=== PATIENT | female | born 1980 | race Caucasian/White ===

== ENCOUNTER 2017-07-02 12:42 | Outpatient (CLI) | payer OTHER | END 2017-07-02 22:00 | disposition home or self-care (01) | LOC: MLB 12:42 | PROVIDERS: ATTEND Family Medicine Geriatric Medicine | DX: D68.61 Antiphospholipid syndrome (principal) | CPT/HCPCS: 36415; 85610 ==

== ENCOUNTER 2017-07-10 11:49 | Outpatient (CLI) | payer OTHER ==
[2017-07-10 12:41] LABS: PROTHROMBIN TIME 33.8 secs (10.8-13.4)
== END 2017-07-10 22:17 | disposition home or self-care (01) ==
LOC: MLB 11:49
PROVIDERS: ATTEND Family Medicine Geriatric Medicine
DX: D68.61 Antiphospholipid syndrome (principal)
CPT/HCPCS: 36415; 85610

== ENCOUNTER 2017-07-24 11:50 | Outpatient (CLI) | payer OTHER ==
[2017-07-24 12:41] LABS: PROTHROMBIN TIME 33.7 secs (10.8-13.4)
== END 2017-07-24 19:46 | disposition home or self-care (01) ==
LOC: MLB 11:50
PROVIDERS: ATTEND Family Medicine Geriatric Medicine
DX: D68.61 Antiphospholipid syndrome (principal)
CPT/HCPCS: 36415; 85610

== ENCOUNTER 2017-08-07 12:06 | Outpatient (CLI) | payer OTHER ==
[2017-08-07 14:03] LABS: PROTHROMBIN TIME 15.7 secs (10.8-13.4)
== END 2017-08-07 20:39 | disposition home or self-care (01) ==
LOC: MLB 12:06
PROVIDERS: ATTEND Family Medicine Geriatric Medicine
DX: D68.61 Antiphospholipid syndrome (principal)
CPT/HCPCS: 36415; 85610

== ENCOUNTER 2017-09-04 11:30 | Outpatient (CLI) | payer OTHER ==
[2017-09-04 12:43] LABS: PROTHROMBIN TIME 22.4 secs (10.8-13.4)
== END 2017-09-04 20:15 | disposition home or self-care (01) ==
LOC: MLB 11:30
PROVIDERS: ATTEND Family Medicine Geriatric Medicine
DX: D68.61 Antiphospholipid syndrome (principal)
CPT/HCPCS: 36415; 85610

== ENCOUNTER 2017-10-09 12:05 | Outpatient (CLI) | payer OTHER ==
[2017-10-09 13:28] LABS: BASOPHILS # (AUTO) 0.1 K/uL (0.00-0.22); BASOPHILS % (AUTO) 1.2 % (0.0-2.0); EOSINOPHILS # (AUTO) 0.2 K/uL (0-0.4); EOSINOPHILS % (AUTO) 2.2 % (0.0-4.0); HEMATOCRIT 45.3 % (36-48); HEMOGLOBIN 15.4 g/dL (12.0-16.0); LYMPHOCYTES # (AUTO) 2.1 K/uL (2.5-16.5); LYMPHOCYTES % (AUTO) 20.5 % (20.5-51.1); MEAN CORPUSCULAR HEMOGLOBIN 30 pg (27-31); MEAN CORPUSCULAR HGB CONC 34 g/dL (33-37); MONOCYTES # (AUTO) 0.4 K/uL (0.8-1.0); MONOCYTES % (AUTO) 4.1 % (1.7-9.3); NEUTROPHILS # (AUTO) 7.5 K/uL (1.8-7.7); PLATELET COUNT (AUTO) 166 K/uL (140-450); RED BLOOD CELL COUNT(AUTO) 5.09 MIL/uL (4.20-5.40); RED CELL DISTRIBUTION WIDTH 13.5 % (11.6-13.7); WHITE BLOOD COUNT (AUTO) 10.5 K/uL (4.8-10.8)
[2017-10-09 13:43] LABS: PROTHROMBIN TIME 21.8 secs (10.8-13.4)
[2017-10-09 13:57] LABS: ALBUMIN 3.8 g/dL (3.4-5.0); ANION GAP 14.9 (8-16); CARBON DIOXIDE 26.3 mmol/L (21-32); CHOL/HDL RATIO 3.9 (1-4.5); CREATININE 0.8 mg/dL (0.6-1.3); MAGNESIUM 1.7 mg/dL (1.8-2.4); POTASSIUM 4.2 mmol/L (3.5-5.1); THYROID STIMULATING HORMONE 0.84 uIU/mL (0.34-3.74); TOTAL BILIRUBIN 0.4 mg/dL (0.0-1.0)
[2017-10-10 09:36] LABS: T4 (THYROXINE) 8.1 ug/dL (4.5-12.0)
== END 2017-10-09 19:32 | disposition home or self-care (01) ==
LOC: MLB 12:05
PROVIDERS: ATTEND Family Medicine Geriatric Medicine
DX: D68.61 Antiphospholipid syndrome (principal); I10 Essential (primary) hypertension; E78.5 Hyperlipidemia, unspecified; D64.9 Anemia, unspecified
CPT/HCPCS: 36415; 80053; 83735; 84436; 84443; 85025; 85610; 85613; 86147

== ENCOUNTER 2018-02-11 11:42 | Outpatient (CLI) | payer OTHER ==
[2018-02-11 12:42] LABS: PROTHROMBIN TIME 18.4 secs (10.8-13.4)
[2018-02-12 08:14] LABS: FOLLICLE STIMULATING HORMONE 6.7 mIU/mL (.); LUTEINIZING HORMONE 4.7 mIU/mL (.); PROLACTIN 7.7 ng/mL (4.8-23.3)
== END 2018-02-11 16:41 | disposition home or self-care (01) ==
LOC: MLB 11:42
PROVIDERS: ATTEND Family Medicine Geriatric Medicine
DX: N92.6 Irregular menstruation, unspecified (principal); I49.9 Cardiac arrhythmia, unspecified; Z79.01 Long term (current) use of anticoagulants
CPT/HCPCS: 36415; 83001; 83002; 83735; 84146; 85610

== ENCOUNTER 2018-03-19 11:34 | Outpatient (CLI) | payer OTHER ==
[2018-03-19 12:12] LABS: PROTHROMBIN TIME 25.3 secs (10.8-13.4)
== END 2018-03-19 21:32 | disposition home or self-care (01) ==
LOC: MLB 11:34
PROVIDERS: ATTEND Family Medicine Geriatric Medicine
DX: D68.61 Antiphospholipid syndrome (principal); Z79.01 Long term (current) use of anticoagulants
CPT/HCPCS: 36415; 85610

== ENCOUNTER 2018-05-12 10:35 | Outpatient (CLI) | payer OTHER ==
[2018-05-12 11:06] LABS: BASOPHILS # (AUTO) 0.1 K/uL (0.00-0.22); BASOPHILS % (AUTO) 0.7 % (0.0-2.0); EOSINOPHILS # (AUTO) 0.3 K/uL (0-0.4); EOSINOPHILS % (AUTO) 2.9 % (0.0-4.0); HEMATOCRIT 42.1 % (36-48); HEMOGLOBIN 14.1 g/dL (12.0-16.0); LYMPHOCYTES % (AUTO) 18.7 % (20.5-51.1); MEAN CORPUSCULAR HEMOGLOBIN 30 pg (27-31); MEAN CORPUSCULAR HGB CONC 34 g/dL (33-37); MEAN CORPUSCULAR VOLUME 90.1 fL (80-94); MONOCYTES # (AUTO) 0.5 K/uL (0.8-1.0); MONOCYTES % (AUTO) 4.7 % (1.7-9.3); NEUTROPHILS # (AUTO) 7.6 K/uL (1.8-7.7); PLATELET COUNT (AUTO) 168 K/uL (140-450); RED BLOOD CELL COUNT(AUTO) 4.67 MIL/uL (4.20-5.40); RED CELL DISTRIBUTION WIDTH 13.5 % (11.6-13.7); WHITE BLOOD COUNT (AUTO) 10.5 K/uL (4.8-10.8)
== END 2018-05-12 20:42 | disposition home or self-care (01) ==
LOC: MLB 10:35
PROVIDERS: ATTEND Family Medicine Geriatric Medicine
DX: N92.0 Excessive and frequent menstruation with regular cycle (principal); D68.61 Antiphospholipid syndrome
CPT/HCPCS: 36415; 85025; 85610

== ENCOUNTER 2018-06-25 11:31 | Outpatient (CLI) | payer OTHER ==
[2018-06-25 12:49] LABS: PROTHROMBIN TIME 25.5 secs (10.8-13.4)
== END 2018-06-25 21:34 | disposition home or self-care (01) ==
LOC: MLB 11:31
PROVIDERS: ATTEND Family Medicine Geriatric Medicine
DX: D68.61 Antiphospholipid syndrome (principal)
CPT/HCPCS: 36415; 85610

== ENCOUNTER → 2018-08-20 | Outpatient (CLI) | payer OTHER ==
[2018-08-20 12:42] LABS: PROTHROMBIN TIME 19.1 secs (10.8-13.4)
== END | disposition home or self-care (01) ==
LOC: MLB 11:06
PROVIDERS: ATTEND Family Medicine Geriatric Medicine
DX: D68.61 Antiphospholipid syndrome (principal)
CPT/HCPCS: 36415; 85610

== ENCOUNTER 2019-02-07 11:38 | Outpatient (CLI) | payer OTHER ==
[2019-02-07 13:08] LABS: PROTHROMBIN TIME 30.1 secs (10.8-13.4)
== END 2019-02-07 20:40 | disposition home or self-care (01) ==
LOC: MLB 11:38
DX: I48.92 Unspecified atrial flutter (principal); Z79.02 Long term (current) use of antithrombotics/antiplatelets
CPT/HCPCS: 36415; 85610

== ENCOUNTER 2019-03-27 11:29 | Outpatient (CLI) | payer OTHER ==
[2019-03-27 12:19] LABS: PROTHROMBIN TIME 22.6 secs (10.8-13.4)
== END 2019-03-27 20:21 | disposition home or self-care (01) ==
LOC: MLB 11:29
DX: I48.92 Unspecified atrial flutter (principal); Z79.02 Long term (current) use of antithrombotics/antiplatelets
CPT/HCPCS: 36415; 85610

== ENCOUNTER 2019-04-24 10:23 | Outpatient (CLI) | payer OTHER ==
[2019-04-24 10:54] LABS: BASOPHILS # (AUTO) 0.1 K/uL (0.00-0.22); EOSINOPHILS # (AUTO) 0.2 K/uL (0-0.4); EOSINOPHILS % (AUTO) 2.2 % (0.0-4.0); HEMATOCRIT 40.5 % (36-48); HEMOGLOBIN 14.1 g/dL (12.0-16.0); LYMPHOCYTES # (AUTO) 2.1 K/uL (2.5-16.5); LYMPHOCYTES % (AUTO) 23.6 % (20.5-51.1); MEAN CORPUSCULAR HEMOGLOBIN 31 pg (27-31); MEAN CORPUSCULAR HGB CONC 35 g/dL (33-37); MEAN CORPUSCULAR VOLUME 90.3 fL (80-94); MONOCYTES # (AUTO) 0.4 K/uL (0.8-1.0); MONOCYTES % (AUTO) 4.4 % (1.7-9.3); NEUTROPHILS # (AUTO) 6.2 K/uL (1.8-7.7); NEUTROPHILS % (AUTO) 68.8 % (42.2-75.2); PLATELET COUNT (AUTO) 173 K/uL (140-450); RED BLOOD CELL COUNT(AUTO) 4.49 MIL/uL (4.20-5.40); RED CELL DISTRIBUTION WIDTH 14.1 % (11.6-13.7)
[2019-04-24 11:12] LABS: APPEARANCE,URINE CLEAR (CLEAR); BILIRUBIN,URINE NEGATIVE (NEGATIVE); BLOOD, URINE 3+ (NEGATIVE); COLOR,URINE YELLOW (YELLOW); LEUKOCYTE ESTERASE ,URINE NEGATIVE (NEGATIVE); NITRITE, URINE NEGATIVE (NEGATIVE); UGLUCOSE NEGATIVE (NEGATIVE)
[2019-04-24 11:26] LABS: PROTHROMBIN TIME 26.3 secs (10.8-13.4)
[2019-04-24 11:33] LABS: ANION GAP 12.9 (8-16); CREATININE 0.8 mg/dL (0.6-1.3); POTASSIUM 3.9 mmol/L (3.5-5.1)
[2019-04-24 11:34] LABS: ALBUMIN 3.3 g/dL (3.4-5.0); TOTAL BILIRUBIN 0.4 mg/dL (0.0-1.0)
[2019-04-24 11:42] LABS: WBC,URINE 0-5 /HPF (0-5)
[2019-04-24 16:00] LABS: CHOL/HDL RATIO 4.5 (1-4.5)
== END 2019-04-24 16:09 | disposition home or self-care (01) ==
LOC: MLB 10:23
DX: Z13.21 Encounter for screening for nutritional disorder (principal); Z13.1 Encounter for screening for diabetes mellitus; Z13.0 Encounter for screening for diseases of the blood and blood-forming organs and certain disorders involving the immune mechanism; I48.92 Unspecified atrial flutter; I10 Essential (primary) hypertension; Z13.220 Encounter for screening for lipoid disorders; Z79.02 Long term (current) use of antithrombotics/antiplatelets
CPT/HCPCS: 36415; 80053; 81001; 82306; 83036; 85025; 85610

== ENCOUNTER 2019-09-28 16:39 | Outpatient (CLI) | payer OTHER | END 2019-09-28 20:22 | disposition home or self-care (01) | LOC: MLB 16:39 | DX: D68.61 Antiphospholipid syndrome (principal); Z79.01 Long term (current) use of anticoagulants | CPT/HCPCS: 36415; 85610 ==

== ENCOUNTER 2019-10-17 11:34 | Outpatient (CLI) | payer OTHER ==
[2019-10-17 12:50] LABS: PROTHROMBIN TIME 35.5 secs (10.8-13.4)
== END 2019-10-17 21:28 | disposition home or self-care (01) ==
LOC: MLB 11:34
DX: D68.61 Antiphospholipid syndrome (principal); Z79.01 Long term (current) use of anticoagulants
CPT/HCPCS: 36415; 85610

== ENCOUNTER 2019-10-25 11:31 | Outpatient (CLI) | payer OTHER ==
[2019-10-25 12:02] LABS: PROTHROMBIN TIME 29.2 secs (10.8-13.4)
== END 2019-10-25 20:12 | disposition home or self-care (01) ==
LOC: MLB 11:31
DX: D68.61 Antiphospholipid syndrome (principal); Z79.01 Long term (current) use of anticoagulants
CPT/HCPCS: 36415; 85610

== ENCOUNTER 2020-04-06 09:46 | Outpatient (CLI) | payer OTHER | END 2020-04-06 18:22 | disposition home or self-care (01) | LOC: MLB 09:46 | DX: D68.61 Antiphospholipid syndrome (principal); Z79.01 Long term (current) use of anticoagulants | CPT/HCPCS: 36415; 85610 ==

== ENCOUNTER 2020-04-20 10:07 | Outpatient (CLI) | payer OTHER ==
[2020-04-20 11:36] LABS: PROTHROMBIN TIME 20.8 secs (10.8-13.4)
== END 2020-04-20 22:13 | disposition home or self-care (01) ==
LOC: MLB 10:07
DX: D68.61 Antiphospholipid syndrome (principal); Z79.01 Long term (current) use of anticoagulants
CPT/HCPCS: 36415; 85610

== ENCOUNTER 2020-06-29 13:19 | Outpatient (CLI) | payer OTHER ==
[2020-06-29 14:11] LABS: PROTHROMBIN TIME 21.8 secs (10.8-13.4)
== END 2020-06-29 20:14 | disposition home or self-care (01) ==
LOC: MLB 13:19
DX: D68.61 Antiphospholipid syndrome (principal); Z79.01 Long term (current) use of anticoagulants
CPT/HCPCS: 36415; 85610

== ENCOUNTER 2020-08-16 11:24 | Outpatient (CLI) | payer OTHER ==
[2020-08-16 11:57] LABS: ALBUMIN 3.8 g/dL (3.4-5.0); ANION GAP 12.1 (8-16); CARBON DIOXIDE 25.6 mmol/L (21-32); CHOL/HDL RATIO 4.5 (1-4.5); CREATININE 0.9 mg/dL (0.6-1.3); MAGNESIUM 1.8 mg/dL (1.8-2.4); POTASSIUM 4.7 mmol/L (3.5-5.1); TOTAL BILIRUBIN 0.7 mg/dL (0.0-1.0)
[2020-08-16 12:06] LABS: PROTHROMBIN TIME 29.6 secs (10.8-13.4)
== END 2020-08-16 20:33 | disposition home or self-care (01) ==
LOC: MLB 11:24
DX: D68.61 Antiphospholipid syndrome (principal); R00.2 Palpitations; I10 Essential (primary) hypertension; Z79.01 Long term (current) use of anticoagulants
CPT/HCPCS: 36415; 80053; 83735; 85610

== ENCOUNTER 2020-09-07 13:33 | Outpatient (CLI) | payer OTHER ==
[2020-09-07 14:08] LABS: PROTHROMBIN TIME 30.6 secs (10.8-13.4)
== END 2020-09-07 21:18 | disposition home or self-care (01) ==
LOC: MLB 13:33
DX: D68.51 Activated protein C resistance (principal); Z79.01 Long term (current) use of anticoagulants
CPT/HCPCS: 36415; 85610

== ENCOUNTER 2020-09-14 12:53 | Outpatient (CLI) | payer OTHER ==
[2020-09-14 13:30] LABS: PROTHROMBIN TIME 25.5 secs (10.8-13.4)
== END 2020-09-14 20:33 | disposition home or self-care (01) ==
LOC: MLB 12:53
DX: D68.61 Antiphospholipid syndrome (principal); Z79.01 Long term (current) use of anticoagulants
CPT/HCPCS: 36415; 85610

== ENCOUNTER 2020-11-02 08:35 | Outpatient (CLI) | payer OTHER | END 2020-11-02 21:13 | disposition home or self-care (01) | LOC: MLB 08:35 | DX: D68.61 Antiphospholipid syndrome (principal); Z79.01 Long term (current) use of anticoagulants | CPT/HCPCS: 36415; 85610 ==